=== PATIENT | male | born 1955 | race Caucasian/White ===

== ENCOUNTER 2021-09-23 15:42 | Outpatient (REF) | payer SELFPAY ==
[2021-09-23 18:33] LABS: Prothrombin Time 23.3 SEC (9.9-13.0)
== END 2021-09-23 15:43 | disposition home or self-care (01) ==
LOC: HO.MANLDS 15:42
PROVIDERS: PCP Physician Assistant; Visit Provider Physician Assistant
DX: Z51.81 Encounter for therapeutic drug level monitoring (principal)
CPT/HCPCS: 36415; 85610

== ENCOUNTER 2021-10-03 09:12 | Outpatient (REF) | payer MEDICARE, SELFPAY ==
[2021-10-03 12:25] LABS: INTERNATIONAL NORM RATIO 1.7 (0.9-1.1)
== END 2021-10-03 09:13 | disposition home or self-care (01) ==
LOC: HO.MANLDS 09:12
PROVIDERS: PCP Physician Assistant; Visit Provider Physician Assistant
DX: Z51.81 Encounter for therapeutic drug level monitoring (principal)
CPT/HCPCS: 36415; 85610

== ENCOUNTER 2021-10-07 09:16 | Outpatient (REF) | payer MEDICARE, SELFPAY ==
[2021-10-07 11:05] LABS: INTERNATIONAL NORM RATIO 1.8 (0.9-1.1); Prothrombin Time 20.6 SEC (9.9-13.0)
== END 2021-10-07 09:17 | disposition home or self-care (01) ==
LOC: HO.MANLDS 09:16
PROVIDERS: PCP Physician Assistant; Visit Provider Physician Assistant
DX: Z51.81 Encounter for therapeutic drug level monitoring (principal); Z79.899 Other long term (current) drug therapy
CPT/HCPCS: 36415; 85610

== ENCOUNTER 2021-10-14 09:35 | Outpatient (REF) | payer MEDICARE, SELFPAY ==
[2021-10-14 10:57] LABS: Prothrombin Time 22.7 SEC (9.9-13.0)
== END 2021-10-14 09:36 | disposition home or self-care (01) ==
LOC: HO.MANLDS 09:35
PROVIDERS: PCP Physician Assistant; Visit Provider Physician Assistant
DX: Z79.899 Other long term (current) drug therapy (principal)
CPT/HCPCS: 36415; 85610

== ENCOUNTER 2021-10-21 08:32 | Outpatient (REF) | payer MEDICARE, SELFPAY ==
[2021-10-21 11:42] LABS: Prothrombin Time 23.2 SEC (9.9-13.0)
== END 2021-10-21 08:33 | disposition home or self-care (01) ==
LOC: HO.MANLDS 08:32
PROVIDERS: PCP Physician Assistant; Visit Provider Physician Assistant
DX: Z51.81 Encounter for therapeutic drug level monitoring (principal); Z79.899 Other long term (current) drug therapy
CPT/HCPCS: 36415; 85610

== ENCOUNTER 2021-11-03 07:51 | Outpatient (REF) | payer MEDICARE, SELFPAY ==
[2021-11-03 11:42] LABS: INTERNATIONAL NORM RATIO 2.7 (0.9-1.1); Prothrombin Time 31.3 SEC (9.9-13.0)
== END 2021-11-03 07:52 | disposition home or self-care (01) ==
LOC: HO.MANLDS 07:51
PROVIDERS: PCP Physician Assistant; Visit Provider Physician Assistant
DX: Z51.81 Encounter for therapeutic drug level monitoring (principal)
CPT/HCPCS: 36415; 85610

== ENCOUNTER 2021-11-17 08:47 | Outpatient (REF) | payer MEDICARE, SELFPAY ==
[2021-11-17 11:37] LABS: INTERNATIONAL NORM RATIO 2.3 (0.9-1.1); Prothrombin Time 26.3 SEC (9.9-13.0)
== END 2021-11-17 08:48 | disposition home or self-care (01) ==
LOC: HO.MANLDS 08:47
PROVIDERS: PCP Physician Assistant; Visit Provider Physician Assistant
DX: Z51.81 Encounter for therapeutic drug level monitoring (principal); Z79.899 Other long term (current) drug therapy
CPT/HCPCS: 36415; 85610